=== PATIENT | male | born 1990 | race African-American/Black ===

== ENCOUNTER 2019-03-09 19:11 | Emergency (ER) | payer SELFPAY ==
[~2019-03-09] VITALS: Ht 188 cm; Wt 122.5 kg
[2019-03-09] MEDS ORDERED: NKM (19:18)
--- NOTE | 2019-03-09 19:22 | NUR ---
ED Nurse Note: Pt c/o SINUSITIS AND HEADCHE X 2 DAYS. Pt is AO x 4 times, VSS, on room air no distress. ERMD seen Pt at bedside.
[2019-03-09 19:27] VITALS: BP 142/88
--- NOTE | 2019-03-09 19:27 | Emergency Room Report ---
History of Present Illness General Chief Complaint: Headache Source: Patient Present Illness HPI 28-year-old male with no significant past medical history here complaining of 6 days of sore throat, headache, rhinorrhea and minor cough and 3 days of pain and pressure around the right eye and right-sided of the nasal septum. Patient reports that he has been taking [id number] medication with minimal relief. Denies smoking, drug use, chest pain, wheezing, shortness of breath. Patient denies abdominal pain nausea vomiting. He reports that he is planning to appear in court in [place] tomorrow and he wants his symptoms to go away right away. Denies all other associated symptoms Allergies: Coded Allergies: No Known Allergies (Unverified , 03/09/19) Patient History Past Medical History: see triage record Past Surgical History: unable to obtain Pertinent Family History: none Immunizations: UTD Reviewed Nursing Documentation: PMH: Agreed; PSxH: Agreed Nursing Documentation-PMH Past Medical History: No Stated History Review of Systems All Other Systems: negative except mentioned in HPI Physical Exam Vital Signs Date Time Temp Pulse Resp B/P (MAP) Pulse Ox O2 Delivery O2 Flow Rate FiO2 03/09/19 19:15 97.9 67 20 139/85 (103) 97 Room Air Sp02 EP Interpretation: reviewed, normal General Appearance: normal inspection, well appearing, no apparent distress, alert Head: normocephalic, atraumatic Eyes: bilateral eye normal inspection, bilateral eye PERRL ENT: hearing grossly normal, normal pharynx, no angioedema, TMs + canals normal , uvula midline, other - Right maxillary and frontal sinuses tender to palpation Neck: normal inspection, full range of motion, supple Respiratory: normal inspection, chest non-tender, lungs clear, no rhonchi, no wheezing Cardiovascular #1: normal inspection, regular rate, rhythm, no edema, no murmur , normal capillary refill Gastrointestinal: normal inspection, non tender, soft Genitourinary: no CVA tenderness Musculoskeletal: normal inspection, back normal Neurologic: normal inspection, alert, oriented x3, responsive Psychiatric: normal inspection, judgement/insight normal Skin: normal inspection, normal color, no rash, warm/dry, palpation normal Lymphatic: normal inspection, no adenopathy Medical Decision Making PA Attestation All my diagnosis and treatment plans were reviewed ad discussed with my supervising physician Dr. Sanchez Diagnostic Impression: Primary Impression: Sinusitis ER Course 28-year-old male with no significant past medical history here complaining of 6 days of sore throat, headache, rhinorrhea and minor cough and 3 days of pain and pressure around the right eye and right-sided of the nasal septum. Patient reports that he has been taking [id number] medication with minimal relief. Denies smoking, drug use, chest pain, wheezing, shortness of breath. Patient denies abdominal pain nausea vomiting. He reports that he is planning to appear in court in [place] tomorrow and he wants his symptoms to go away right away. Denies all other associated symptoms Ddx considered but are not limited to: strep pharyngitis, URI, tonsilitis, peritonsillar absacess, influneza, sinusitis Vital signs: are WNL, pt. is afebrile H&PE are most consistent with: sinusitis ORDERS: Augmentin, Flonase, Mucinex D ED INTERVENTIONS: None required at this time. DISCHARGE: At this time pt. is stable for d/c to home. Will provide printed patient care instructions, and any necessary prescriptions. Care plan and follow up instructions have been discussed with the patient prior to discharge. I told the patient that medications are not on her work right away and he needs to rest and hydrate follow-up with her primary care provider if no improvement Last Vital Signs Date Time Temp Pulse Resp B/P (MAP) Pulse Ox O2 Delivery O2 Flow Rate FiO2 03/09/19 19:15 97.9 67 20 139/85 (103) 97 Room Air Disposition: HOME, SELF-CARE Condition: Stable Scripts Guaifenesin/Pseudoephedrne Hcl (MUCINEX D ER 600-60 MG TABLET) 1 Each Tab.er.12h 1 EACH PO BID, #20 TAB Prov: Rudolph Graham 03/09/19 Fluticasone Propionate (Flonase Allergy Relief) 9.9 Ml [place].susp 2 PUFFS NS BID, #1 SPRAY Prov: Rudolph Graham 03/09/19 Amoxicillin/Potassium Clav 875-125* (AUGMENTIN 875-125 TABLET*) 1 Each Tablet 1 TAB ORAL TWICE A DAY for 10 Days, #20 TAB Prov: Rudolph Graham 03/09/19 Patient Instructions: Sinus Headache, Sinusitis, Adult, [id number] Additional Instructions: Follow-up with a primary care provider use Flonase and Mucinex D or Claritin-D for symptom relief take Augmentin as prescribed Rudolph Graham Mar 09, 2019 19:27
[2019-03-09] MEDS ORDERED: MUCINEX D ER 61 EACH PO (19:29)
[2019-03-09] MEDS ORDERED: AUGMENTIN 875-1 EAC1 ORAL (19:29)
[2019-03-09] MEDS ORDERED: FLONASE ALLERG9.9 ML NS (19:29)
[2019-03-09 19:37] VITALS: BP 142/88
--- NOTE | 2019-03-09 19:38 | NUR ---
ER DISCHARGE NOTE: Patient is cleared to be discharged per ERMD, pt is aox4, on room air, with stable vital signs. pt was given dc and prescription instructions, pt was able to verbalize understanding, pt id band removed without complications. pt is able to ambulate with steady gait. pt took all belongings.
== END 2019-03-09 19:45 | disposition home or self-care (01) ==
LOC: EMR 19:40
DX: J32.9 Chronic sinusitis, unspecified (principal)
CPT/HCPCS: 99282